=== PATIENT | female | born 1980 | race Caucasian/White ===

== ENCOUNTER 2021-12-28 06:52 | Observation (INO) ==
[2021-12-28 06:58] VITALS: BMI 31.3
[2021-12-28] MEDS ORDERED: NS 1,000 ML IV 1,000 ML ONE ×3 (07:01→12:04)
[2021-12-28] MEDS ORDERED: NS 1,000 ML IV 1,000 ML IV ONE ×2 (07:16→09:24)
[2021-12-28 07:34] LABS: BASOPHILS % (AUTO) 0.4 % (0.2-1.0); EOSINOPHILS % (AUTO) 0.1 % (0.9-2.9); HEMATOCRIT 45.4 % (36.0-47.0); HEMOGLOBIN 14.5 g/dL (12.0-16.0); LYMPHOCYTES % (AUTO) 9.4 % (21.0-51.0); MEAN CORPUSCULAR HEMOGLOBIN 28.5 pg (27.0-34.0); MEAN CORPUSCULAR VOLUME 89.1 fL (80.0-100.0); MEAN PLATELET VOLUME 9.5 fL (7.4-11.0); MONOCYTES # (AUTO) 0.7 x10^3/uL (0.3-0.8); MONOCYTES % (AUTO) 6.1 % (0.0-13.0); NEUTROPHILS # (AUTO) 9.2 x10^3/uL (2.2-4.8); RED CELL DISTRIBUTION WIDTH 15.2 % (11.6-16.5); WHITE BLOOD COUNT 10.9 X10^3/uL (3.6-10.0)
[2021-12-28 07:46] LABS: ALANINE AMINOTRANSFERASE 50 Units/L (12-78); ALBUMIN 4.1 g/dL (3.4-5.0); ALKALINE PHOSPHATASE 287 Units/L (46-116); ASPARTATE AMINO TRANSFERASE 36 Units/L (15-37); BLOOD UREA NITROGEN 17 mg/dL (7-18); CALCIUM 9.5 mg/dL (8.5-10.1); CHLORIDE 101 mmol/L (98-107); CREATININE 1.48 mg/dL (0.55-1.02); SODIUM 141 mmol/L (136-145); TOTAL PROTEIN 8.8 g/dL (6.4-8.2); eGFR NON BLACK RACES 42 (>60)
[2021-12-28 07:49] LABS: CARBON DIOXIDE 12.6 mmol/L (21-32); COR NA(FOR HYPERGLY) 152 mmol/L (136-145)
[2021-12-28 07:50] LABS: SERUM ACETONE SMALL (NEGATIVE)
--- NOTE | 2021-12-28 07:50 | DR.HYPOGLY ---
HPI <PATRICK ROMAN Last Filed: 12/31/21 08:37> Time Seen Time Seen by Provider: 12/28/21 07:22 PCP Primary Care Physician: CELINA HPI Comment HPI Comment: A 41 y/o female presenting with nausea, vomiting for several days (close to 1 week). She had an appt. to go see her providers in [place] today but couldn't make it. She states that her BS was 600+ at home this morning. She has Type 1 DM and has an Insulin pump in place. She had falle some days ago and hurts by her right ribs. Complaint Chief Complaint:: PT. C/O HIGH BLOOD SUGAR, NAUSEA/VOMITING AND WEAKNESS. PT. STATES SHE HAS BEEN SICK ON AND OFF ALL WEEK LONG. PT. HAS AN INSULIN PUMP. LAST BLOOD SUGAR WAS >600. PT. GAVE HERSELF HUMALOG 28UNITS. COVID-19 Coronavirus risk:travel/contact w/high risk person: No Has patient experienced Coronavirus symptoms: No Source History Provided: Patient Mode of Arrival Mode of Arrival: Wheelchair Timing Onset of Chief Complaint: 12/25/21 Came on: Gradually PMH <MYRAIL JESSIE Last Filed: 12/31/21 08:37> PMH Past Medical History: Yes Past Medical History: Diabetes, Hypertension and Hypothyroidism Past Medical History Comment: EF 36%, GASTROPARESIS Past Surgical History: Yes Surgical History: Cholecystectomy and Hysterectomy Family History History of Family Medical Conditions: Yes Family Medical History: Diabetes Mellitus and Hypertension Social History Does patient currently use any type of tobacco product: No Have you used tobacco products in the last 12 months: No Type of Tobacco Use: None Does any household member use tobacco: No Alcohol Use: None Do you use any recreational Drugs:: No Lives With: Spouse Lives Where: Home Travel Risk Coronavirus risk:travel/contact w/high risk person: No Has patient experienced Coronavirus symptoms: No Infectious screening In the last 2 months have you had wt loss of >10#?: NO Have you had fever, night sweats or hemotysis?: No Have you traveled outside the country in the last 6 months?: No Isolation: Standard ROS <PATRICK MENDOZA Last Filed: 12/31/21 08:37> Review of Systems Constitutional: No Symptoms Reported Eyes: No Symptoms Reported ENTM: No Symptoms Reported Respiratoy: No Symptoms Reported Cardiovascular: No Symptoms Reported Gastrointestinal/Abdominal: Abdominal Pain, Diarrhea and Vomiting Genitourinary: No Symptoms Reported Neurological: No Symptoms Reported Musculoskeletal: No Symptoms Reported Integumentary: No Symptoms Reported Hematologic/Lymphatic: No Symptoms Reported Endocrine: No Symptoms Reported Psychiatric: No Symptoms Reported PE <PATRICK IMMANUEL Last Filed: 12/31/21 08:37> Vital Signs Vitals: Temperature 97.3 F Pulse Rate 81 Respiratory Rate 17 Blood Pressure [Left Arm] 139/87 Blood Pressure 150/83 O2 Sat by Pulse Oximetry 96 General Limitations: No Limitations General Appearance: Alert and In No Apparent Distress Eyes Eye exam: Normal Appearance and EOMI ENT ENT Exam: Normal Exam, Normal Oropharynx, Normal External Ear Exam and Mucous Membranes Moist Neck Neck Exam: Normal Inspection, Full ROM and Trachea Midline Chest Chest Inspection: Normal Inspection and Symmetric Chest Wall Rise Respiratory Respiratory Exam: Normal Lung Sounds Bilat Cardiovascular Cardiovascular Exam: Regular Rate, Normal Rhythm, Normal Heart Sounds, +S1 and +S2 Abdominal Exam Abdominal Exam: Normal Inspection, Normal Bowel Sounds, Soft and Tenderness Abdominal Tenderness: Epigastrium Extremities Extremities Exam: Normal Inspection and Full ROM Back Back Exam: Normal Inspection and Full ROM Neurologic Neurological Exam: Alert and Oriented X3 Psychiatric Psychiatric Exam: Normal Affect and Normal Mood Skin Skin Exam: Intact <SHEREENKUNAL LIAM Last Filed: 01/12/22 08:02> Vital Signs Vitals: Temperature 97.3 F Pulse Rate 81 Respiratory Rate 17 Blood Pressure [Left Arm] 139/87 Blood Pressure 150/83 O2 Sat by Pulse Oximetry 96 <MAMADOUKIKI CHOUDHURY Last Filed: 01/12/22 08:02> Treatment Treatment: PATIENT SIGN OUT TO ME BY DR. GAMBINO. LABS DISCUSSED WITH PATIENT. SHE WILL BE ADDIMITTED FOR FURTHER MANAGEMENT. Consultation Consultation Comments: DISCUSSED PATIENT WITH DR. HORNE. HE WILL ADMIT PATIENT. Education/Counseling Education/Counseling: Patient Educated On: Diagnosis ROR <PATRICK GAMBINO Last Filed: 12/31/21 08:37> Labs Reviewed Result Diagrams: 12/29/21 05:25 12/29/21 05:25 Laboratory: WBC 10.9 X10^3/uL (3.6-10.0) H 12/28/21 07:19 RBC 5.10 X10^6/uL (3.5-5.4) 12/28/21 07:19 Hgb 14.5 g/dL (12.0-16.0) 12/28/21 07:19 Hct 45.4 % (36.0-47.0) 12/28/21 07:19 MCV 89.1 fL (80.0-100.0) 12/28/21 07:19 MCH 28.5 pg (27.0-34.0) 12/28/21 07:19 MCHC 32.0 g/dL (33.0-35.0) L 12/28/21 07:19 RDW 15.2 % (11.6-16.5) 12/28/21 07:19 Plt Count 386 X10^3/uL (150.0-450.0) 12/28/21 07:19 MPV 9.5 fL (7.4-11.0) 12/28/21 07:19 Neut % (Auto) 84.0 % (42.0-75.0) H 12/28/21 07:19 Lymph % (Auto) 9.4 % (21.0-51.0) L 12/28/21 07:19 [place] % (Auto) 6.1 % (0.0-13.0) 12/28/21 07:19 Eos % (Auto) 0.1 % (0.9-2.9) L 12/28/21 07:19 Baso % (Auto) 0.4 % (0.2-1.0) 12/28/21 07:19 Neut # (Auto) 9.2 x10^3/uL (2.2-4.8) H 12/28/21 07:19 Lymph # (Auto) 1.0 X10^3/uL (1.3-2.9) L 12/28/21 07:19 [place] # (Auto) 0.7 x10^3/uL (0.3-0.8) 12/28/21 07:19 Eos # (Auto) 0.0 x10^3/uL (0.0-0.2) 12/28/21 07:19 Baso # (Auto) 0.0 X10^3/uL (0.0-0.1) 12/28/21 07:19 Absolute Nucleated RBC 0.0 /100WBC 12/28/21 07:19 Sample Site Lra 12/28/21 09:33 ABG pH 7.340 (7.35-7.45) L 12/28/21 09:33 ABG pCO2 34.0 mmHg (35.0-45.0) L 12/28/21 09:33 ABG pO2 61.0 mmHg (80.0-100.0) L 12/28/21 09:33 ABG HCO3 18.3 mmol/L (22-26) L 12/28/21 09:33 ABG O2 Saturation 89.0 % (90-100) L 12/28/21 09:33 ABG Base Excess -6.6 mmol/L (-2.0-2.0) L 12/28/21 09:33 Liam Test Pos 12/28/21 09:33 A-a Gradient 46.0 mmHg 12/28/21 09:33 FiO2 21.0 12/28/21 09:33 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,application tester 12/28/21 09:33 Sodium 141 mmol/L (136-145) 12/28/21 07:19 Corrected Sodium 152 mmol/L (136-145) H 12/28/21 07:19 Potassium 4.1 mmol/L (3.5-5.1) 12/28/21 07:19 Chloride 101 mmol/L (98-107) 12/28/21 07:19 Carbon Dioxide 12.6 mmol/L (21-32) L* 12/28/21 07:19 BUN 17 mg/dL (7-18) 12/28/21 07:19 Creatinine 1.48 mg/dL (0.55-1.02) H 12/28/21 07:19 Est GFR (MDRD) Af Amer 50 (>60) L 12/28/21 07:19 Est GFR (MDRD) Non-Af 42 (>60) L 12/28/21 07:19 Glucose 440 mg/dL (65-99) H 12/28/21 10:10 POC Glucose (mg/dL) 400 mg/dL (65-99) H 12/28/21 09:57 Calcium 9.5 mg/dL (8.5-10.1) 12/28/21 07:19 Corrected Calcium TNP 02/10/22 07:19 Total Bilirubin 0.40 mg/dL (0.2-1.0) 12/28/21 07:19 AST 36 Units/L (15-37) 12/28/21 07:19 ALT 50 Units/L (12-78) 12/28/21 07:19 Alkaline Phosphatase 287 Units/L (46-116) H 12/28/21 07:19 Total Protein 8.8 g/dL (6.4-8.2) H 12/28/21 07:19 Albumin 4.1 g/dL (3.4-5.0) 12/28/21 07:19 Globulin 4.7 g/dL (2.5-4.5) H 12/28/21 07:19 Albumin/Globulin Ratio 0.9 Ratio (1.1-2.1) L 12/28/21 07:19 Acetone, Semi-Quant Small (NEGATIVE) H 12/28/21 07:19 SARS-CoV-2 (PCR) Negative (NEGATIVE) 12/28/21 08:30 Influenza Type A (PCR) Negative (NEGATIVE) 12/28/21 08:30 Influenza Type B (PCR) Negative (NEGATIVE) 12/28/21 08:30 RSV (PCR) Negative (NEGATIVE) 12/28/21 08:30 <SHEFALI CHOUDHURY - Last Filed: 01/12/22 08:02> Labs Reviewed Laboratory Results Reviewed?: Yes Laboratory: WBC 10.9 X10^3/uL (3.6-10.0) H 12/28/21 07:19 RBC 5.10 X10^6/uL (3.5-5.4) 12/28/21 07:19 Hgb 14.5 g/dL (12.0-16.0) 12/28/21 07:19 Hct 45.4 % (36.0-47.0) 12/28/21 07:19 MCV 89.1 fL (80.0-100.0) 12/28/21 07:19 MCH 28.5 pg (27.0-34.0) 12/28/21 07:19 MCHC 32.0 g/dL (33.0-35.0) L 12/28/21 07:19 RDW 15.2 % (11.6-16.5) 12/28/21 07:19 Plt Count 386 X10^3/uL (150.0-450.0) 12/28/21 07:19 MPV 9.5 fL (7.4-11.0) 12/28/21 07:19 Neut % (Auto) 84.0 % (42.0-75.0) H 12/28/21 07:19 Lymph % (Auto) 9.4 % (21.0-51.0) L 12/28/21 07:19 [place] % (Auto) 6.1 % (0.0-13.0) 12/28/21 07:19 Eos % (Auto) 0.1 % (0.9-2.9) L 12/28/21 07:19 Baso % (Auto) 0.4 % (0.2-1.0) 12/28/21 07:19 Neut # (Auto) 9.2 x10^3/uL (2.2-4.8) H 12/28/21 07:19 Lymph # (Auto) 1.0 X10^3/uL (1.3-2.9) L 12/28/21 07:19 [place] # (Auto) 0.7 x10^3/uL (0.3-0.8) 12/28/21 07:19 Eos # (Auto) 0.0 x10^3/uL (0.0-0.2) 12/28/21 07:19 Baso # (Auto) 0.0 X10^3/uL (0.0-0.1) 12/28/21 07:19 Absolute Nucleated RBC 0.0 /100WBC 12/28/21 07:19 Sample Site Lra 12/28/21 09:33 ABG pH 7.340 (7.35-7.45) L 12/28/21 09:33 ABG pCO2 34.0 mmHg (35.0-45.0) L 12/28/21 09:33 ABG pO2 61.0 mmHg (80.0-100.0) L 12/28/21 09:33 ABG HCO3 18.3 mmol/L (22-26) L 12/28/21 09:33 ABG O2 Saturation 89.0 % (90-100) L 12/28/21 09:33 ABG Base Excess -6.6 mmol/L (-2.0-2.0) L 12/28/21 09:33 Liam Test Pos 12/28/21 09:33 A-a Gradient 46.0 mmHg 12/28/21 09:33 FiO2 21.0 12/28/21 09:33 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,application tester 12/28/21 09:33 Sodium 141 mmol/L (136-145) 12/28/21 07:19 Corrected Sodium 152 mmol/L (136-145) H 12/28/21 07:19 Potassium 4.1 mmol/L (3.5-5.1) 12/28/21 07:19 Chloride 101 mmol/L (98-107) 12/28/21 07:19 Carbon Dioxide 12.6 mmol/L (21-32) L* 12/28/21 07:19 BUN 17 mg/dL (7-18) 12/28/21 07:19 Creatinine 1.48 mg/dL (0.55-1.02) H 12/28/21 07:19 Est GFR (MDRD) Af Amer 50 (>60) L 12/28/21 07:19 Est GFR (MDRD) Non-Af 42 (>60) L 12/28/21 07:19 Glucose 440 mg/dL (65-99) H 12/28/21 10:10 POC Glucose (mg/dL) 400 mg/dL (65-99) H 12/28/21 09:57 Calcium 9.5 mg/dL (8.5-10.1) 12/28/21 07:19 Corrected Calcium TNP 12/28/21 07:19 Total Bilirubin 0.40 mg/dL (0.2-1.0) 12/28/21 07:19 AST 36 Units/L (15-37) 12/28/21 07:19 ALT 50 Units/L (12-78) 12/28/21 07:19 Alkaline Phosphatase 287 Units/L (46-116) H 12/28/21 07:19 Total Protein 8.8 g/dL (6.4-8.2) H 12/28/21 07:19 Albumin 4.1 g/dL (3.4-5.0) 12/28/21 07:19 Globulin 4.7 g/dL (2.5-4.5) H 12/28/21 07:19 Albumin/Globulin Ratio 0.9 Ratio (1.1-2.1) L 12/28/21 07:19 Acetone, Semi-Quant Small (NEGATIVE) H 12/28/21 07:19 SARS-CoV-2 (PCR) Negative (NEGATIVE) 12/28/21 08:30 Influenza Type A (PCR) Negative (NEGATIVE) 12/28/21 08:30 Influenza Type B (PCR) Negative (NEGATIVE) 12/28/21 08:30 RSV (PCR) Negative (NEGATIVE) 12/28/21 08:30 XRAY XRAY Interpreted by: Radiologist (REPORT DISCUSSED WITH PATIENT AND DISCUSSED WITH PATIENT.) and Self Opioid <ADEWUNMI SOBOWALE - Last Filed: 12/31/21 08:37> Opioid Risk Tool Age (Dario box if 16-45): Yes History of Preadolescent Sexual Abuse: No Total: 1 Total Score Risk Category: Low Risk Copyright: Donis SMITH predicting aberrant behaviors <SHEFALI CHOUDHURY - Last Filed: 01/12/22 08:02> Opioid Risk Tool Total: 0 Total Score Risk Category: Low Risk <ADEWUNMI SOBOWALE - Last Filed: 12/31/21 08:37> Diagnosis Discharge Problem: Hyperglycemia Type I diabetes mellitus Qualifiers: Diabetes mellitus complication status: with other specified complication Qualified Code(s): E10.69 - Type 1 diabetes mellitus with other specified complication Closed rib fracture Qualifiers: Encounter type: initial encounter Rib fracture type: single rib Laterality: right Qualified Code(s): S22.31XA - Fracture of one rib, right side, initial encounter for closed fracture Instructions Instructions: Type 2 Diabetes Mellitus, Diagnosis, Adult Type 1 Diabetes Mellitus, Diagnosis, Adult Diabetic Ketoacidosis Hemoglobin A1c Test Preventing Diabetes Mellitus Complications How and Where to Give Subcutaneous Insulin Injections, Adult Blood Glucose Monitoring, Adult Preventing Diabetic Ketoacidosis Diabetes Mellitus and Nutrition Forms: Excuse From Work or School Precautions for COVID19 [facility] Social Distancing
[2021-12-28] MEDS ORDERED: TORADOL 30 MG VIAL ONE (08:14)
[2021-12-28] MEDS ORDERED: TORADOL 30 MG VIAL IVP ONE (08:14)
[2021-12-28] MEDS ORDERED: COMPAZINE INJ IVP ONE (08:14)
[2021-12-28] MEDS ORDERED: COMPAZINE INJ ONE (08:15)
--- NOTE | 2021-12-28 08:25 | RAD ---
HISTORYFall, right chest painSTUDYRight ribs five viewsCOMPARISONNoneFINDINGSThere is a pacemaker present on the left obscuring a portion of the left midlung. Heart is mildly enlarged. No congestive heart failure is noted. Lung bran are clear. No pneumothorax or pleural effusion is identified. There is a question of a nondisplaced cortical fracture of the right anterior 8th rib. The remainder of the right ribs appear intact.IMPRESSIONPossible nondisplaced cortical fracture right anterior 8th rib. Clinical correlation as the presence or absence of point tenderness should be of further diagnostic value.Lungs clearElectronically signed by: FRANKIE BATEMAN (Dec 28, 2021 08:24:53)
[2021-12-28] MEDS ORDERED: LEVSIN/MAALOX/LIDOC VISC ONE ×2 (08:40→20:00)
[2021-12-28] MEDS ORDERED: LEVSIN/MAALOX/LIDOC VISC PO ONE (08:40)
[2021-12-28] MEDS ORDERED: DEMEROL INJ IVP ONE (09:11)
[2021-12-28] MEDS ORDERED: DEMEROL INJ ONE (09:20)
[2021-12-28 09:35] LABS: ABG ALLEN TEST POS; ABG BASE EXCESS -6.6 mmol/L (-2.0-2.0); ABG HCO3 18.3 mmol/L (22-26)
[2021-12-28] MEDS ORDERED: NovoLIN R (or HumuLIN R) SC PRN (12:50)
[2021-12-28] MEDS ORDERED: CATAPRES TAB 0.1 MG PO PRN (15:56)
[2021-12-28 16:04] LABS: BLOOD UREA NITROGEN 14 mg/dL (7-18); CALCIUM 7.8 mg/dL (8.5-10.1); CARBON DIOXIDE 17.9 mmol/L (21-32); CHLORIDE 101 mmol/L (98-107); CREATININE 1.01 mg/dL (0.55-1.02); SODIUM 137 mmol/L (136-145); eGFR NON BLACK RACES > 60 (>60)
[2021-12-28 16:29] LABS: COR NA(FOR HYPERGLY) 149 mmol/L (136-145)
[2021-12-28] MEDS: APRESOLINE TAB 25 MG PO SCH ×2 (16:47→21:03)
[2021-12-28] MEDS: NS 1,000 ML IV 1,000 ML IV SCH ×2 (16:47→20:11)
[2021-12-28] MEDS ORDERED: PHENERGAN INJ 25 MG IM PRN ×2 (17:09→17:21)
[2021-12-28] MEDS: LEVSIN/MAALOX/LIDOC VISC PO SCH ×2 (17:31→21:03)
[2021-12-28] MEDS: PERCOCET TAB 5/325 MG PO PRN (17:32)
[2021-12-28] MEDS ORDERED: MYXREDLIN 100 UNIT/100 ML BAG 100 UNIT/100 ML PLAST..BAG IV PRN (17:32)
[2021-12-28] MEDS ORDERED: LYRICA CAP 50 mg PO ONE (19:59)
[2021-12-28] MEDS ORDERED: APRESOLINE TAB 25 MG ONE (19:59)
[2021-12-28] MEDS ORDERED: ATIVAN TAB 1 MG ONE (19:59)
[2021-12-28] MEDS ORDERED: OTBSDRIP XX SCH (20:00)
[2021-12-28] MEDS: ATIVAN TAB 1 MG PO SCH (20:12)
[2021-12-28] MEDS: LYRICA CAP 50 mg PO SCH (20:12)
[2021-12-28] MEDS: OTBSDRIP XX SCH ×4 (20:40→23:37)
[2021-12-28 21:13] LABS: BILIRUBIN,URINE NEGATIVE (NEGATIVE); BLOOD/HEMOGLOBIN,URINE NEGATIVE (NEGATIVE); GLUCOSE, URINE 4+ (NEGATIVE); KETONES,URINE 4+ (NEGATIVE); LEUKOCYTE ESTERASE ,URINE 1+ (NEGATIVE); NITRITES,URINE NEGATIVE (NEGATIVE); PROTEIN,URINE 2+ (NEGATIVE); UROBILINOGEN,URINE NORMAL (NORMAL)
[2021-12-28 21:14] LABS: APPEARANCE,URINE CLEAR (CLEAR); BACTERIA,URINE NEGATIVE /HPF (NEGATIVE); COLOR,URINE YELLOW (YELLOW); RBC,URINE NONE SEEN /HPF (0-3); SQUAMOUS EPITHELIAL CELL,UR RARE /HPF (NEGATIVE)
[2021-12-29] MEDS: PERCOCET TAB 5/325 MG PO PRN ×4 (00:16→18:58)
[2021-12-29] MEDS: OTBSDRIP XX SCH ×10 (00:40→10:45)
[2021-12-29] MEDS: NS 1,000 ML IV 1,000 ML IV SCH ×4 (05:42→21:06)
[2021-12-29] MEDS: APRESOLINE TAB 25 MG PO SCH ×3 (05:46→21:35)
[2021-12-29] MEDS: LEVSIN/MAALOX/LIDOC VISC PO SCH ×3 (05:46→20:59)
[2021-12-29 05:59] LABS: BASOPHILS # (AUTO) 0.1 X10^3/uL (0.0-0.1); BASOPHILS % (AUTO) 0.7 % (0.2-1.0); EOSINOPHILS % (AUTO) 0.6 % (0.9-2.9); HEMATOCRIT 35.9 % (36.0-47.0); LYMPHOCYTES # (AUTO) 2.8 X10^3/uL (1.3-2.9); LYMPHOCYTES % (AUTO) 32.8 % (21.0-51.0); MEAN CORPUSCULAR HEMOGLOBIN 28.5 pg (27.0-34.0); MEAN CORPUSCULAR HGB CONC 33.5 g/dL (33.0-35.0); MEAN CORPUSCULAR VOLUME 85.1 fL (80.0-100.0); MEAN PLATELET VOLUME 8.9 fL (7.4-11.0); MONOCYTES # (AUTO) 0.7 x10^3/uL (0.3-0.8); MONOCYTES % (AUTO) 8.7 % (0.0-13.0); NEUTROPHILS # (AUTO) 4.9 x10^3/uL (2.2-4.8); NEUTROPHILS % (AUTO) 57.2 % (42.0-75.0); RED BLOOD COUNT 4.22 X10^6/uL (3.5-5.4); RED CELL DISTRIBUTION WIDTH 14.7 % (11.6-16.5); WHITE BLOOD COUNT 8.6 X10^3/uL (3.6-10.0)
[2021-12-29 06:26] LABS: ALANINE AMINOTRANSFERASE 38 Units/L (12-78); ALBUMIN 3.1 g/dL (3.4-5.0); ALKALINE PHOSPHATASE 190 Units/L (46-116); ASPARTATE AMINO TRANSFERASE 27 Units/L (15-37); BLOOD UREA NITROGEN 10 mg/dL (7-18); CALCIUM 8.3 mg/dL (8.5-10.1); CARBON DIOXIDE 21.7 mmol/L (21-32); CHLORIDE 112 mmol/L (98-107); COR NA(FOR HYPERGLY) 146 mmol/L (136-145); MAGNESIUM 2.8 mg/dL (1.7-2.9); SODIUM 144 mmol/L (136-145); TOTAL PROTEIN 6.8 g/dL (6.4-8.2); eGFR NON BLACK RACES > 60 (>60)
[2021-12-29] MEDS ORDERED: NovoLIN R (or HumuLIN R) SC PRN (08:28)
[2021-12-29] MEDS ORDERED: LEXAPRO ONE (08:31)
[2021-12-29] MEDS: LYRICA CAP 50 mg PO SCH ×2 (08:47→20:56)
[2021-12-29] MEDS: LEXAPRO PO SCH (08:47)
[2021-12-29] MEDS: PROTONIX TAB 40 MG PO SCH (08:47)
[2021-12-29] MEDS: HYDROCHLOROTHIAZIDE 25 MG TAB PO SCH (08:48)
[2021-12-29] MEDS: MOBIC TAB 15 MG PO SCH (08:48)
--- NOTE | 2021-12-29 08:54 | DR.H&P ---
H&P History & Physical for Day of: H&P Date: 12/28/21 Chief Complaint Chief Complaint: Nausea/vomiting Hyperglycemia Fall Allergies Allergies Allergy/AdvReac Type Severity Reaction Status Date / Time ondansetron [From Zofran] AdvReac Verified 12/28/21 07:30 History of Present Illness History of Present Illness: Pt is a 41 year old female past medical history of Type 1 Diabetes mellitus, Cardiomyopathy (defibrillator), presenting with nausea and vomiting, hyperglycemia, and right rib pain for the past week. She reports that she fell "sometime last week" last week on the right side of her chest. She also states that her insulin pump stopped working properly and that her blood glucose levels have been elevated, causing her to be nauseous and worsen her gas troparesis. In the ED she was found to be in DKA. Labs/imaging: Wbc 10.9, Hgb 14.5, Plt 386, Na 141, K 4.1, Creatinine 1.48, Glucose 539, HCO3 12.6, ABG was obtained that revealed: pH 7.34, pCO2 34, pO2 61, HCO3 18.3, O2 sat 89% on RA. Acetone positive, CXR: Possible nondisplaced cortical fracture right anterior 8th rib. Clinical correlation as the presence or absence of point tenderness should be of further diagnostic value. Lungs clear. Pt was given insulin and IVF bolus in the ED. Will order and start patient on DKA protocol, insulin gtt with SSI, FSBG q1h, repeat BMP, IV phenergan for nausea, GI cocktail. Pain control for rib fracture noted on XR. Otherwise, will continue to closely monitor and follow up labs. Past Medical History Past Medical History: Diabetes, Hypertension and Hypothyroidism Past Surgical History Surgical History: Cholecystectomy and Hysterectomy Family History Family Medical History: Diabetes Mellitus and Hypertension Social History Does patient currently use any type of tobacco product: No Have you used tobacco products in the last 12 months: No Type of Tobacco Use: None Does any household member use tobacco: No Alcohol Use: None Drug Use: Prescription Drugs Medications Home Medications: ondansetron [From Zofran] Adverse Reaction (Verified 12/28/21 07:30) CONTINUE taking the following medications clonidine HCl 0.1 mg PO TID PRN 12/28/21 [History] escitalopram oxalate 10 mg PO DAILY 12/28/21 [History] hydralazine 50 mg PO TID 12/28/21 [History] hydrochlorothiazide 25 mg PO DAILY 12/28/21 [History] insulin lispro [Humalog U-100 Insulin] See Rx Instructions .ROUTE .COMPLEX 12/28/21 [History] lorazepam 2 mg PO QHS PRN 12/28/21 [History] meloxicam 15 mg PO DAILY 12/28/21 [History] oxycodone-acetaminophen 1 tab PO QID PRN 12/28/21 [History] pantoprazole 40 mg PO QAM 12/28/21 [History] pregabalin 50 mg PO BID 12/28/21 [History] Labs Result Diagrams: 12/29/21 05:25 12/29/21 05:25 Labs: Laboratory WBC 8.6 X10^3/uL (3.6-10.0) 12/29/21 05:25 RBC 4.22 X10^6/uL (3.5-5.4) 12/29/21 05:25 Hgb 12.0 g/dL (12.0-16.0) D 12/29/21 05:25 Hct 35.9 % (36.0-47.0) L 12/29/21 05:25 MCV 85.1 fL (80.0-100.0) 12/29/21 05:25 MCH 28.5 pg (27.0-34.0) 12/29/21 05:25 MCHC 33.5 g/dL (33.0-35.0) 12/29/21 05:25 RDW 14.7 % (11.6-16.5) 12/29/21 05:25 Plt Count 289 X10^3/uL (150.0-450.0) 12/29/21 05:25 MPV 8.9 fL (7.4-11.0) 12/29/21 05:25 Neut % (Auto) 57.2 % (42.0-75.0) 12/29/21 05:25 Lymph % (Auto) 32.8 % (21.0-51.0) 12/29/21 05:25 [place] % (Auto) 8.7 % (0.0-13.0) 12/29/21 05:25 Eos % (Auto) 0.6 % (0.9-2.9) L 12/29/21 05:25 Baso % (Auto) 0.7 % (0.2-1.0) 12/29/21 05:25 Neut # (Auto) 4.9 x10^3/uL (2.2-4.8) H 12/29/21 05:25 Lymph # (Auto) 2.8 X10^3/uL (1.3-2.9) 12/29/21 05:25 [place] # (Auto) 0.7 x10^3/uL (0.3-0.8) 12/29/21 05:25 Eos # (Auto) 0.0 x10^3/uL (0.0-0.2) 12/29/21 05:25 Baso # (Auto) 0.1 X10^3/uL (0.0-0.1) 12/29/21 05:25 Absolute Nucleated RBC 0.0 /100WBC 12/29/21 05:25 Sample Site Lra 12/28/21 09:33 ABG pH 7.340 (7.35-7.45) L 12/28/21 09:33 ABG pCO2 34.0 mmHg (35.0-45.0) L 12/28/21 09:33 ABG pO2 61.0 mmHg (80.0-100.0) L 12/28/21 09:33 ABG HCO3 18.3 mmol/L (22-26) L 12/28/21 09:33 ABG O2 Saturation 89.0 % (90-100) L 12/28/21 09:33 ABG Base Excess -6.6 mmol/L (-2.0-2.0) L 12/28/21 09:33 Liam Test Pos 12/28/21 09:33 A-a Gradient 46.0 mmHg 12/28/21 09:33 FiO2 21.0 12/28/21 09:33 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,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/28/21 09:33 Sodium 144 mmol/L (136-145) 12/29/21 05:25 Corrected Sodium 146 mmol/L (136-145) H 12/29/21 05:25 Potassium 3.7 mmol/L (3.5-5.1) 12/29/21 05:25 Chloride 112 mmol/L (98-107) H 12/29/21 05:25 Carbon Dioxide 21.7 mmol/L (21-32) 12/29/21 05:25 BUN 10 mg/dL (7-18) 12/29/21 05:25 Creatinine 0.80 mg/dL (0.55-1.02) 12/29/21 05:25 Est GFR (MDRD) Af Amer > 60 (>60) 12/29/21 05:25 Est GFR (MDRD) Non-Af > 60 (>60) 12/29/21 05:25 Glucose 189 mg/dL (65-99) H 12/29/21 05:25 POC Glucose (mg/dL) 179 mg/dL (65-99) H 12/29/21 06:19 Hemoglobin A1c 9.1 % 12/29/21 05:25 Calcium 8.3 mg/dL (8.5-10.1) L 12/29/21 05:25 Corrected Calcium 9.0 mg/dL (8.5-10.1) 12/29/21 05:25 Magnesium 2.8 mg/dL (1.7-2.9) 12/29/21 05:25 Total Bilirubin 0.30 mg/dL (0.2-1.0) 12/29/21 05:25 AST 27 Units/L (15-37) 12/29/21 05:25 ALT 38 Units/L (12-78) 12/29/21 05:25 Alkaline Phosphatase 190 Units/L (46-116) H 12/29/21 05:25 Total Protein 6.8 g/dL (6.4-8.2) 12/29/21 05:25 Albumin 3.1 g/dL (3.4-5.0) L 12/29/21 05:25 Globulin 3.7 g/dL (2.5-4.5) 12/29/21 05:25 Albumin/Globulin Ratio 0.8 Ratio (1.1-2.1) L 12/29/21 05:25 Specimen Type Clean catch urine 12/28/21 20:40 Urine Color Yellow (YELLOW) 12/28/21 20:40 Urine Appearance Clear (CLEAR) 12/28/21 20:40 Urine pH 5.0 (5.0 - 8.0) 12/28/21 20:40 Ur Specific [place] 1.020 (1.000-1.030) 12/28/21 20:40 Urine Protein 2+ (NEGATIVE) 12/28/21 20:40 Urine Glucose (UA) 4+ (NEGATIVE) 12/28/21 20:40 Urine Ketones 4+ (NEGATIVE) 12/28/21 20:40 Urine Occult Blood Negative (NEGATIVE) 12/28/21 20:40 Urine Nitrite Negative (NEGATIVE) 12/28/21 20:40 Urine Bilirubin Negative (NEGATIVE) 12/28/21 20:40 Urine Urobilinogen Normal (NORMAL) 12/28/21 20:40 Ur Leukocyte Esterase 1+ (NEGATIVE) 12/28/21 20:40 Urine RBC None seen /HPF (0-3) 12/28/21 20:40 Urine WBC 3-5 /HPF (0-5) 12/28/21 20:40 Ur Squamous Epith Cells Rare /HPF (NEGATIVE) 12/28/21 20:40 Urine Bacteria Negative /HPF (NEGATIVE) 12/28/21 20:40 Ur Culture Indicated? No/not indicated 12/28/21 20:40 Acetone, Semi-Quant Small (NEGATIVE) H 12/28/21 07:19 SARS-CoV-2 (PCR) Negative (NEGATIVE) 12/28/21 08:30 Influenza Type A (PCR) Negative (NEGATIVE) 12/28/21 08:30 Influenza Type B (PCR) Negative (NEGATIVE) 12/28/21 08:30 RSV (PCR) Negative (NEGATIVE) 12/28/21 08:30 Review of Systems Constitutional: Weakness; denies Fever and Chills Eyes: No Symptoms Reported ENT: No Symptoms Reported Respiratory: No Symptoms Reported Cardiovascular: No Symptoms Reported Gastrointestinal: Nausea and Vomiting Genitourinary: No Symptoms Reported Musculoskeletal: No Symptoms Reported Skin: No Symptoms Reported Neurological: No Symptoms Reported Physical Exam Vital Signs: Temperature 98.1 F Pulse Rate [Left] 82 Pulse Rate 81 Respiratory Rate 18 Blood Pressure [Left Arm] 169/106 Blood Pressure 150/83 O2 Sat by Pulse Oximetry 97 Oriented: Normal Eyes: Normal Ear: Normal Nose: Normal Throat: Normal Respiratory: Clear Throughout Cardiovascular: Normal : Normal Auscultation: Bowel Sounds: Normal Palpation: Normal Tenderness: Normal Skin: Normal Musculoskeletal: Normal Psychiatric: Normal Mood Description: Calm and Appropriate Affect: Normal Speech Pattern: Clear and Appropriate Assessment/Plan (1) DKA (diabetic ketoacidosis): Status: Acute Plan: DKA protocol (2) Diabetes mellitus type 2, uncontrolled: Status: Acute Plan: SSI (3) Closed rib fracture: Qualifiers: Encounter type: initial encounter Laterality: right Rib fracture type: single rib Qualified Code(s): S22.31XA - Fracture of one rib, right side, initial encounter for closed fracture Status: Acute Plan: Pain control Review H&P Reviewed: Yes Patient was examined?: Yes
[2021-12-29] MEDS: LANTUS SC SCH (09:29)
--- NOTE | 2021-12-29 16:34 | PCM.PROG ---
Progress Note Progress Note for Day of Date of Exam: 12/29/21 Subjective Subjective: Pt is a 41 year old female past medical history of Type 1 Diabetes mellitus, Cardiomyopathy (defibrillator), admitted for DKA and right 8th non- displaced rib fracture. This morning she reports improvement in her symptoms including nausea. She is tolerating full liquid diet and her anion gap has been closed. She states that her supplies for her insulin pump have not arrived by mail yet and that she will need to be placed back on subcutaneous insulin in the interim. Labs/imaging: Wbc 8.6, Hgb 12, Plt 289, Na 144, K 3.7, Creatinine 0.80, Glucose 189, HCO3 21.7. Will discontinue insulin gtt and start on Lantus 50 units in AM and 25 units PM, with SSI, start FSBG q4h, Continue IVF NS@125ml/h, IV phenergan for nausea, GI cocktail. Resumed home medications. Continue Pain control for rib fracture. Otherwise, will continue with current treatment plan. Continue to closely monitor and follow up labs. Past Medical Family Social History Past Med/Fam/Surg Hx: No changes since H&P Allergies: Allergies ondansetron [From Zofran] Adverse Reaction (Verified 12/28/21 07:30) Review of Systems ROS: No change since H&P Vital Signs and I&O's Vital Signs: Temperature 99.0 F Pulse Rate [Left] 83 Pulse Rate 81 Respiratory Rate 20 Blood Pressure [Left Arm] 164/93 Blood Pressure 150/83 O2 Sat by Pulse Oximetry 96 Intake and Output: Intake & Output 12/26/21 12/27/21 12/28/21 12/29/21 23:59 23:59 23:59 23:59 Intake Total 506 / 506 1859.5 / 1859.5 Balance 506 / 506 1859.5 / 1859.5 Physical Exam Oriented: Normal Eyes: Normal Ear: Normal Nose: Normal Throat: Normal Respiratory: Normal Cardiovascular: Normal : Normal Auscultation: Bowel Sounds: Normal Tenderness: Normal Skin: Normal Musculoskeletal: Normal Psychiatric: Normal Mood Description: Calm and Appropriate Affect: Normal Speech Pattern: Clear and Appropriate Laboratory and Diagnostics Result Diagrams: 12/29/21 05:25 12/29/21 05:25 Labs: Laboratory WBC 8.6 X10^3/uL (3.6-10.0) 12/29/21 05:25 RBC 4.22 X10^6/uL (3.5-5.4) 12/29/21 05:25 Hgb 12.0 g/dL (12.0-16.0) D 12/29/21 05:25 Hct 35.9 % (36.0-47.0) L 12/29/21 05:25 MCV 85.1 fL (80.0-100.0) 12/29/21 05:25 MCH 28.5 pg (27.0-34.0) 12/29/21 05:25 MCHC 33.5 g/dL (33.0-35.0) 12/29/21 05:25 RDW 14.7 % (11.6-16.5) 12/29/21 05:25 Plt Count 289 X10^3/uL (150.0-450.0) 12/29/21 05:25 MPV 8.9 fL (7.4-11.0) 12/29/21 05:25 Neut % (Auto) 57.2 % (42.0-75.0) 12/29/21 05:25 Lymph % (Auto) 32.8 % (21.0-51.0) 12/29/21 05:25 [place] % (Auto) 8.7 % (0.0-13.0) 12/29/21 05:25 Eos % (Auto) 0.6 % (0.9-2.9) L 12/29/21 05:25 Baso % (Auto) 0.7 % (0.2-1.0) 12/29/21 05:25 Neut # (Auto) 4.9 x10^3/uL (2.2-4.8) H 12/29/21 05:25 Lymph # (Auto) 2.8 X10^3/uL (1.3-2.9) 12/29/21 05:25 [place] # (Auto) 0.7 x10^3/uL (0.3-0.8) 12/29/21 05:25 Eos # (Auto) 0.0 x10^3/uL (0.0-0.2) 12/29/21 05:25 Baso # (Auto) 0.1 X10^3/uL (0.0-0.1) 12/29/21 05:25 Absolute Nucleated RBC 0.0 /100WBC 12/29/21 05:25 Sample Site Lra 12/28/21 09:33 ABG pH 7.340 (7.35-7.45) L 12/28/21 09:33 ABG pCO2 34.0 mmHg (35.0-45.0) L 12/28/21 09:33 ABG pO2 61.0 mmHg (80.0-100.0) L 12/28/21 09:33 ABG HCO3 18.3 mmol/L (22-26) L 12/28/21 09:33 ABG O2 Saturation 89.0 % (90-100) L 12/28/21 09:33 ABG Base Excess -6.6 mmol/L (-2.0-2.0) L 12/28/21 09:33 Liam Test Pos 12/28/21 09:33 A-a Gradient 46.0 mmHg 12/28/21 09:33 FiO2 21.0 12/28/21 09:33 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,congressional assistant 12/28/21 09:33 Sodium 144 mmol/L (136-145) 12/29/21 05:25 Corrected Sodium 146 mmol/L (136-145) H 12/29/21 05:25 Potassium 3.7 mmol/L (3.5-5.1) 12/29/21 05:25 Chloride 112 mmol/L (98-107) H 12/29/21 05:25 Carbon Dioxide 21.7 mmol/L (21-32) 12/29/21 05:25 BUN 10 mg/dL (7-18) 12/29/21 05:25 Creatinine 0.80 mg/dL (0.55-1.02) 12/29/21 05:25 Est GFR (MDRD) Af Amer > 60 (>60) 12/29/21 05:25 Est GFR (MDRD) Non-Af > 60 (>60) 12/29/21 05:25 Glucose 189 mg/dL (65-99) H 12/29/21 05:25 POC Glucose (mg/dL) 227 mg/dL (65-99) H 12/29/21 11:42 Hemoglobin A1c 9.1 % 12/29/21 05:25 Calcium 8.3 mg/dL (8.5-10.1) L 12/29/21 05:25 Corrected Calcium 9.0 mg/dL (8.5-10.1) 12/29/21 05:25 Magnesium 2.8 mg/dL (1.7-2.9) 12/29/21 05:25 Total Bilirubin 0.30 mg/dL (0.2-1.0) 12/29/21 05:25 AST 27 Units/L (15-37) 12/29/21 05:25 ALT 38 Units/L (12-78) 12/29/21 05:25 Alkaline Phosphatase 190 Units/L (46-116) H 12/29/21 05:25 Total Protein 6.8 g/dL (6.4-8.2) 12/29/21 05:25 Albumin 3.1 g/dL (3.4-5.0) L 12/29/21 05:25 Globulin 3.7 g/dL (2.5-4.5) 12/29/21 05:25 Albumin/Globulin Ratio 0.8 Ratio (1.1-2.1) L 12/29/21 05:25 Specimen Type Clean catch urine 12/28/21 20:40 Urine Color Yellow (YELLOW) 12/28/21 20:40 Urine Appearance Clear (CLEAR) 12/28/21 20:40 Urine pH 5.0 (5.0 - 8.0) 12/28/21 20:40 Ur Specific [place] 1.020 (1.000-1.030) 12/28/21 20:40 Urine Protein 2+ (NEGATIVE) 12/28/21 20:40 Urine Glucose (UA) 4+ (NEGATIVE) 12/28/21 20:40 Urine Ketones 4+ (NEGATIVE) 12/28/21 20:40 Urine Occult Blood Negative (NEGATIVE) 12/28/21 20:40 Urine Nitrite Negative (NEGATIVE) 12/28/21 20:40 Urine Bilirubin Negative (NEGATIVE) 12/28/21 20:40 Urine Urobilinogen Normal (NORMAL) 12/28/21 20:40 Ur Leukocyte Esterase 1+ (NEGATIVE) 12/28/21 20:40 Urine RBC None seen /HPF (0-3) 12/28/21 20:40 Urine WBC 3-5 /HPF (0-5) 12/28/21 20:40 Ur Squamous Epith Cells Rare /HPF (NEGATIVE) 12/28/21 20:40 Urine Bacteria Negative /HPF (NEGATIVE) 12/28/21 20:40 Ur Culture Indicated? No/not indicated 12/28/21 20:40 Acetone, Semi-Quant Small (NEGATIVE) H 12/28/21 07:19 SARS-CoV-2 (PCR) Negative (NEGATIVE) 12/28/21 08:30 Influenza Type A (PCR) Negative (NEGATIVE) 12/28/21 08:30 Influenza Type B (PCR) Negative (NEGATIVE) 12/28/21 08:30 RSV (PCR) Negative (NEGATIVE) 12/28/21 08:30 Plan (1) DKA (diabetic ketoacidosis): Status: Acute Plan: DKA protocol Anion gap closed, start Lantus (2) Diabetes mellitus type 2, uncontrolled: Status: Acute Plan: SSI (3) Closed rib fracture: Status: Acute Qualifiers: Encounter type: initial encounter Laterality: right Rib fracture type: single rib Qualified Code(s): S22.31XA - Fracture of one rib, right side, initial encounter for closed fracture Plan: Pain control
[2021-12-29] MEDS ORDERED: SNACK - Diabetic Appropriate PO SCH ×2 (20:00)
[2021-12-29] MEDS: ATIVAN TAB 1 MG PO SCH (20:55)
[2021-12-29] MEDS ORDERED: LANTUS SC SCH (21:00)
[2021-12-30] MEDS: PERCOCET TAB 5/325 MG PO PRN (02:24)
[2021-12-30] MEDS: LEVSIN/MAALOX/LIDOC VISC PO SCH (05:50)
[2021-12-30] MEDS: APRESOLINE TAB 25 MG PO SCH (05:50)
[2021-12-30] MEDS ORDERED: LEXAPRO ONE (08:33)
[2021-12-30] MEDS: HYDROCHLOROTHIAZIDE 25 MG TAB PO SCH (08:37)
[2021-12-30] MEDS: LANTUS SC SCH (08:38)
[2021-12-30] MEDS: LEXAPRO PO SCH (08:39)
[2021-12-30] MEDS: MOBIC TAB 15 MG PO SCH (08:40)
[2021-12-30] MEDS: PROTONIX TAB 40 MG PO SCH (08:40)
[2021-12-30] MEDS: LYRICA CAP 50 mg PO SCH (08:40)
[2021-12-30 08:41] VITALS: BP 180/93
== END 2021-12-30 10:34 | disposition home or self-care (01) ==
LOC: MED/SURG 06:52 → ER 06:52 → MED/SURG 14:48
PROVIDERS: ADMIT Family Medicine; ATTEND Family Medicine